=== PATIENT | female | born 1975 | race Caucasian/White ===

== ENCOUNTER 2017-02-20 07:00 | Outpatient (CLI) | payer BC, OTHER | END 2017-02-20 07:01 | disposition home or self-care (01) | LOC: BICMAMMO 07:00 | PROVIDERS: ATTEND Advanced Practice Midwife | DX: Z12.31 Encounter for screening mammogram for malignant neoplasm of breast (principal); M54.10 Radiculopathy, site unspecified; M43.17 Spondylolisthesis, lumbosacral region | CPT/HCPCS: 72148; 77067; G0202 ==

== ENCOUNTER 2017-07-23 08:33 | Outpatient (CLI) | payer BC ==
--- NOTE | 2017-07-23 11:22 | MRI ---
MRI CERVICAL SPINE: History: Paresthesia both hands. R20.2 Neck pain. N54.2 Technique: Multiplanar, multisequence noncontrast enhanced MRI images were obtained of the cervical spine. FINDINGS: The spinal cord is unremarkable with no evidence of cord masses or lesions. C1-2, C2-3: Unremarkable. C3-4: No evidence of disc herniation, spinal stenosis or neural foraminal narrowing is seen. C4-5: No evidence of disc herniation, spinal stenosis or neural foraminal narrowing is seen. C5-6, C6-7: Unremarkable. C7-T1: Unremarkable. IMPRESSION: Normal MRI cervical spine. The spinal cord is unremarkable. No significant evidence of masses or lesi ons seen in the central canal or neural foramen. POS: [facility]
== END 2017-07-23 08:34 | disposition home or self-care (01) ==
LOC: TBSIIMAG 08:33
PROVIDERS: ATTEND Surgery
DX: M54.2 Cervicalgia (principal); R20.2 Paresthesia of skin
CPT/HCPCS: 72141

== ENCOUNTER 2018-01-26 16:00 | Outpatient (CLI) | payer BC | END 2018-01-26 16:01 | disposition home or self-care (01) | LOC: SLEEPLAB 16:00 | PROVIDERS: ATTEND Family Medicine | DX: G47.33 Obstructive sleep apnea (adult) (pediatric) (principal); E66.9 Obesity, unspecified; R06.83 Snoring; R09.89 Other specified symptoms and signs involving the circulatory and respiratory systems; R53.83 Other fatigue; Z68.32 Body mass index [BMI] 32.0-32.9, adult | CPT/HCPCS: 95806 ==

== ENCOUNTER 2018-02-20 20:30 | Outpatient (CLI) | payer BC | END 2018-02-20 20:31 | disposition home or self-care (01) | LOC: SLEEPLAB 20:30 | PROVIDERS: ATTEND Family Medicine | DX: G47.33 Obstructive sleep apnea (adult) (pediatric) (principal); R09.89 Other specified symptoms and signs involving the circulatory and respiratory systems; R53.83 Other fatigue; R06.83 Snoring; E66.9 Obesity, unspecified; Z68.32 Body mass index [BMI] 32.0-32.9, adult | CPT/HCPCS: 95811 ==